=== PATIENT | male | born 1995 | race Caucasian/White ===

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

== ENCOUNTER 2017-06-16 14:14 | Emergency (ER) | payer MEDICAID ==
[2017-07-01 15:31] VITALS: BMI 30.7
== END 2017-06-16 16:11 | disposition home or self-care (01) ==
LOC: D.ER 14:14
DX: R51 Headache (principal)

== ENCOUNTER 2017-06-18 20:01 | Emergency (ER) | payer MEDICAID ==
[2017-07-01 15:31] VITALS: BMI 30.7
== END 2017-06-18 21:45 | disposition home or self-care (01) ==
LOC: D.ER 20:01
DX: K40.90 Unilateral inguinal hernia, without obstruction or gangrene, not specified as recurrent (principal)

== ENCOUNTER → 2017-06-22 14:11 | Outpatient (CLI) | payer MEDICAID ==
[~2017-06-22 14:11] MED LIST: ACETAMINOPHEN500 M1 PO; FLUTICASONE PRO16 GM NASAL; MOTRIN600 MG PO; ZOFRAN4 MG PO
[2017-07-01 15:31] VITALS: BMI 30.7
== END | disposition home or self-care (01) ==
LOC: D.US 14:11
DX: R10.9 Unspecified abdominal pain (principal)

== ENCOUNTER 2017-07-01 12:25 | Outpatient (CLI) | payer MEDICAID ==
[~2017-07-01] VITALS: Ht 180.3 cm; Wt 100.0 kg
[2017-07-01 14:55] LABS: BASOPHILS 0.7 % (0-2); EOSINOPHILS 0.4 % (0-7); HEMATOCRIT 43.6 % (42.0-54.0); HEMOGLOBIN 15.3 g/dL (13.5-17.5); IMMATURE GRANULOCYTES 0.1 % (0-5); LYMPHOCYTES 29.8 % (15-50); MCHC 35.1 g/dL (31.0-37.0); MCV 85.5 fL (80.0-100.0); PLATELET COUNT 356 10x3/uL (130-400); RDW 13.3 % (11.5-14.5); WBC 10.1 10x3/uL (4.8-10.8)
[2017-07-01 15:02] LABS: APTT 22.2 SECONDS (22.8-39.4); INR 0.99 (0.85-1.17); PROTIME 12.7 SECONDS (11.6-15.0)
[2017-07-01 15:09] LABS: CALC OSMOLALITY 275 mosm/kg (275-300); CALCIUM 9.8 mg/dL (8.5-10.1); CARBON DIOXIDE 27.4 mmol/L (21.0-32.0); CHLORIDE - SERUM 99 mmol/L (98-107); GLUCOSE 106 mg/dL (74-106); POTASSIUM - SERUM 3.9 mmol/L (3.5-5.1); SODIUM 138 mmol/L (136-145); UREA NITROGEN 12 mg/dL (7-18); eGFR NON AFRICAN AMERICAN > 90 mL/min (90-120)
[2017-07-01] MEDS ORDERED: MOTRIN600 MG PO (15:21)
[2017-07-01] MEDS ORDERED: FLUTICASONE PRO16 GM NASAL (15:23)
[2017-07-01] MEDS ORDERED: ACETAMINOPHEN500 M1 PO (15:23)
[2017-07-01] MEDS ORDERED: ZOFRAN4 MG PO (15:24)
[2017-07-01 15:31] VITALS: BP 137/72; Ht 180.3 cm; Wt 100.0 kg
== END 2017-07-01 17:25 | disposition home or self-care (01) ==
LOC: D.OPS 12:25 → D.CT 12:25 → D.OPS 17:25
PROVIDERS: General Practice
DX: R59.0 Localized enlarged lymph nodes (principal); Z01.812 Encounter for preprocedural laboratory examination

== ENCOUNTER → 2017-08-30 07:53 | Outpatient (CLI) | payer MEDICAID ==
[2017-07-01 15:31] VITALS: BMI 30.7
== END | disposition home or self-care (01) ==
LOC: D.MRI 07:53
DX: R51 Headache (principal)

== ENCOUNTER 2019-05-18 00:27 | Emergency (ER) | payer SELFPAY ==
[~2019-05-18] VITALS: Ht 180.3 cm; Wt 109.1 kg
[2019-05-18 00:35] VITALS: Ht 180.3 cm; Wt 109.1 kg
[2019-05-18 01:00] LABS: BASOPHILS 0.6 % (0-2); EOSINOPHILS 6.2 % (0-7); HEMOGLOBIN 14.4 g/dL (13.5-17.5); IMMATURE GRANULOCYTES 0.1 % (0-5); LYMPHOCYTES 43.5 % (15-50); MCH 29.9 pg (26.0-34.0); MCHC 33.5 g/dL (31.0-37.0); MCV 89.4 fL (80.0-100.0); MEAN PLATELET VOLUME 9.3 fL (7.4-10.4); MONOCYTES 9.1 % (2-11); NEUTROPHILS 40.5 % (40-80); PLATELET COUNT 292 10x3/uL (130-400); RBC 4.81 10x6/uL (4.20-6.10); RDW 13.7 % (11.5-14.5); WBC 7.1 10x3/uL (4.8-10.8)
[2019-05-18 01:09] LABS: CALC OSMOLALITY 278 mosm/kg (275-300); CALCIUM 8.8 mg/dL (8.5-10.1); CARBON DIOXIDE 28.7 mmol/L (21.0-32.0); CHLORIDE - SERUM 105 mmol/L (98-107); GLUCOSE 103 mg/dL (74-106); INR 0.95 (0.85-1.17); PROTIME 12.2 SECONDS (11.6-15.0); SODIUM 139 mmol/L (136-145); UREA NITROGEN 15 mg/dL (7-18); eGFR NON AFRICAN AMERICAN > 90 mL/min (90-120)
[2019-05-18 01:15] LABS: ALBUMIN 3.7 g/dL (3.4-5.0); ALKALINE PHOSPHATASE 110 U/L (46-116); ALT (SGPT) 38 U/L (10-68); BILIRUBIN - TOTAL 0.63 mg/dL (0.2-1.3); PROTEIN - SERUM 7.7 g/dL (6.4-8.2)
[2019-05-18] MEDS ORDERED: PROTONIX40 MG PO (02:01)
[2019-05-18] MEDS ORDERED: ZOFRAN ODT4 MG/UDTAB PO (02:01)
[2019-05-18 02:16] VITALS: BP 101/53
== END 2019-05-18 02:17 | disposition home or self-care (01) ==
LOC: D.ER 00:27
PROVIDERS: Family Medicine
DX: R10.9 Unspecified abdominal pain (principal); K29.70 Gastritis, unspecified, without bleeding

== ENCOUNTER 2020-09-30 20:46 | Emergency (ER) | payer BC ==
[~2020-09-30] VITALS: Ht 180.3 cm; Wt 109.1 kg
[~2020-09-30 20:46] MED LIST changes: +PROTONIX40 MG PO; +ZOFRAN ODT4 MG/UDTAB PO
[2020-09-30 21:20] VITALS: Ht 180.3 cm; Wt 109.1 kg
[2020-09-30 21:58] LABS: BASOPHILS 0.2 % (0-2); EOSINOPHILS 1.8 % (0-7); HEMATOCRIT 43.7 % (42.0-54.0); HEMOGLOBIN 14.8 g/dL (13.5-17.5); IMMATURE GRANULOCYTES 0.2 % (0-5); LYMPHOCYTE ABS# 1.04 10x3/uL (1.32-3.57); LYMPHOCYTES 9.9 % (15-50); MCH 29.1 pg (26.0-34.0); MCHC 33.9 g/dL (31.0-37.0); MEAN PLATELET VOLUME 9.4 fL (7.4-10.4); NEUTROPHIL ABS# 8.68 10x3/uL (1.78-5.38); NEUTROPHILS 82.9 % (40-80); PLATELET COUNT 271 10x3/uL (130-400); RBC 5.08 10x6/uL (4.20-6.10); WBC 10.5 10x3/uL (4.8-10.8)
[2020-09-30 22:06] LABS: CALC OSMOLALITY 277 mosm/kg (275-300); CALCIUM 9.2 mg/dL (8.5-10.1); CARBON DIOXIDE 26.3 mmol/L (21.0-32.0); CHLORIDE - SERUM 105 mmol/L (98-107); GLUCOSE 83 mg/dL (74-106); POTASSIUM - SERUM 3.7 mmol/L (3.5-5.1); SODIUM 140 mmol/L (136-145); UREA NITROGEN 13 mg/dL (7-18); eGFR NON AFRICAN AMERICAN > 90 mL/min (90-120)
[2020-09-30 22:15] LABS: ALBUMIN 4.1 g/dL (3.4-5.0); ALKALINE PHOSPHATASE 84 U/L (30-120); ALT (SGPT) 33 U/L (10-68); AMYLASE - SERUM 41 U/L (25-115); BILIRUBIN - TOTAL 1.34 mg/dL (0.2-1.3); LIPASE 53 U/L (73-393); PROTEIN - SERUM 7.8 g/dL (6.4-8.2); TROPONIN-I < 0.017 ng/mL (0.000-0.060)
[2020-10-01 00:20] LABS: BILIRUBIN NEGATIVE (NEGATIVE); KETONE NEGATIVE (NEGATIVE); NITRITE NEGATIVE (NEGATIVE); UROBILINOGEN NORMAL mg/dL (< 2)
[2020-10-01 00:26] LABS: BACTERIA FEW HPF (NONE SEEN); SQUAMOUS EPITHELIAL 0-5 HPF (0-4); WHITE CELLS - URINE 0-5 HPF (0-1)
[2020-10-01] MEDS ORDERED: ZOFRAN ODT4 MG/UDTAB PO (02:26)
[2020-10-01] MEDS ORDERED: REGLAN10 MG PO (02:26)
[2020-10-01] MEDS ORDERED: OMEPRAZOLE20 M1 PO (02:26)
[2020-10-01 03:23] VITALS: BP 112/65
== END 2020-10-01 03:23 | disposition home or self-care (01) ==
LOC: D.ER 20:46
PROVIDERS: Family Medicine
DX: R10.13 Epigastric pain (principal); R11.2 Nausea with vomiting, unspecified; K52.9 Noninfective gastroenteritis and colitis, unspecified